=== PATIENT | female | born 1985 | race Caucasian/White ===

== ENCOUNTER 2017-04-02 16:58 | Emergency (ER) | payer MEDICAID ==
[~2017-04-02] VITALS: Ht 162.6 cm; Wt 108.0 kg
[2017-04-02 17:06] VITALS: BP 113/55; PULSE 81; RESP 18; O2SAT 100
[2017-04-02] MEDS ORDERED: PROZ40CA PO (17:14)
[2017-04-02] MEDS ORDERED: MONT10TA2 PO (17:14)
[2017-04-02] MEDS ORDERED: VENTAER INH (17:14)
[2017-04-02 17:15] VITALS: BP 113/55; PULSE 75; RESP 18; O2SAT 99
[2017-04-02] MEDS ORDERED: ONDANSETRON ODT 4 MG TAB PO ONE (17:15)
[2017-04-02] MEDS ORDERED: ACETAMINOPHEN/HYDROcodone 325 MG/5 MG TAB PO ONE (17:15)
--- NOTE | 2017-04-02 17:57 | RADRPT ---
EXAM DATE/TIME: 04/02/2017 17:10 [place] COMPARISON: No previous studies available for comparison. INDICATIONS : Patient states she fell down stairs, pain on lateral side of left ankle. MEDICAL HISTORY : None. SURGICAL HISTORY : None. ENCOUNTER: Initial ACUITY: 1 day PAIN SCORE: 8/10 LOCATION: Left lateral ankle FINDINGS: Three view exam was performed of the left ankle. Mild displaced fracture distal fibula. Soft tissue swelling. Ankle mortise intact. CONCLUSION: 1. Mildly displaced distal fibular fracture. Flex Dillard MD on April 02, 2017 at 17:55 Board Certified Radiologist. This report was verified electronically.
[2017-04-02] MEDS ORDERED: NORC5TAB PO (18:17)
--- NOTE | 2017-04-02 18:17 | PD ---
HPI Chief Complaint: Fall Time Seen by Provider: 17:07 Travel History International Travel<30 days: No Contact w/Intl Traveler<30days: No Traveled to known affect area: No [facility] Past Medical History Asthma: Yes Depression: Yes Respiratory: Yes Tetanus Vaccination: < 5 Years ?: Not LMP: 03/05/2017 Tubal Ligation: Yes Past Surgical History Cholecystectomy: Yes Genitourinary Surgery: Yes (kidney stone removal) Tonsillectomy: Yes Social History Alcohol Use: No Tobacco Use: No Substance Use: No Allergies-Medications (Allergen,Severity, Reaction): Coded Allergies: No Known Allergies (Unverified , 04/02/17) Reported Meds & Prescriptions Reported Meds & Active Scripts Active [place] (Hydrocodone-Acetaminophen) 5-325 mg Tab 1 Tab PO Q6H PRN Reported Singulair (Montelukast Sodium) 10 Mg Tab 10 Mg PO HS Ventolin Hfa 18 GM Inh (Albuterol Sulfate) 90 Mcg/Act Aer 2 Puff INH Q4-6H PRN Prozac (Fluoxetine HCl) 40 Mg Cap 40 Mg PO DAILY Data Data Last Documented VS Vital Signs Date Time Temp Pulse Resp B/P Pulse Ox O2 Delivery O2 Flow Rate FiO2 04/02/17 18:50 80 18 126/74 97 04/02/17 17:15 Room Air Orders Ankle, Complete ([id number]) (04/02/17 ) Acetamin-Hydrocod 325-5 Mg ([place] 5-325 (04/02/17 17:15) Ondansetron Odt (Zofran Odt) (04/02/17 17:15) Splinting (04/02/17 ) Crutches (04/02/17 ) Fiberglass Short Leg Splint Ad (04/02/17 ) Fiberglass Sugartong Sp Ad Sl (04/02/17 ) MDM Medical Decision Making Medical Screen Exam Complete: Yes Emergency Medical Condition: Yes Diagnosis Primary Impression: Fibula fracture Referrals: Jad King MD Med/Other Pt SpecificInfo: Prescription(s) given Scripts Hydrocodone-Acetaminophen ([place])5-325 mg Tab1 Tab PO Q6H PRN (PAIN) #15 TAB Ref 0 Prov:Jt Ramires MD 04/02/17 Disposition: 01 DISCHARGE HOME Condition: Stable Jt Ramires MD Apr 02, 2017 18:17
--- NOTE | 2017-04-02 18:23 | PD ---
HPI Chief Complaint: Fall Time Seen by Provider: 17:07 Travel History International Travel<30 days: No Contact w/Intl Traveler<30days: No Traveled to known affect area: No History of Present Illness HPI 32 year old female presenting with left ankle pain after falling down stairs 1 hour prior to arrival in the ED. She states that she heard a "pop" when she fell and was not able to bear weight on the ankle immediately after falling. She denies hitting her head or losing consciousness. She is experiencing some relief with ice but has not taken any pain medication. She denies any neck pain. Eyes any other injuries to other extremities chest abdomen or pelvis per PFSH Past Medical History Asthma: Yes Depression: Yes Respiratory: Yes Tetanus Vaccination: < 5 Years ?: Not LMP: 03/05/2017 Tubal Ligation: Yes Past Surgical History Cholecystectomy: Yes Genitourinary Surgery: Yes (kidney stone removal) Tonsillectomy: Yes Social History Alcohol Use: No Tobacco Use: No Substance Use: No Allergies-Medications (Allergen,Severity, Reaction): Coded Allergies: No Known Allergies (Unverified , 04/02/17) Reported Meds & Prescriptions Reported Meds & Active Scripts Active [place] (Hydrocodone-Acetaminophen) 5-325 mg Tab 1 Tab PO Q6H PRN Reported Singulair (Montelukast Sodium) 10 Mg Tab 10 Mg PO HS Ventolin Hfa 18 GM Inh (Albuterol Sulfate) 90 Mcg/Act Aer 2 Puff INH Q4-6H PRN Prozac (Fluoxetine HCl) 40 Mg Cap 40 Mg PO DAILY Review of Systems Except as stated in HPI: all other systems reviewed are Neg Musculoskeletal: Positive: Pain (left ankle pain) Physical Exam Narrative GENERAL: Well-nourished, well-developed patient. SKIN: Focused skin assessment warm/dry. HEAD: Normocephalic. EYES: No scleral icterus. No injection or drainage. NECK: Supple, trachea midline. No JVD or lymphadenopathy. CARDIOVASCULAR: Regular rate and rhythm without murmurs, gallops, or rubs. RESPIRATORY: Breath sounds equal bilaterally. No accessory muscle use. GASTROINTESTINAL: Abdomen soft, non-tender, nondistended. MUSCULOSKELETAL: Mild swelling to the left ankle, there is some minimal tenderness to both medial and lateral malleoli, there is no tenderness to the proximal tib or fib. No tenderness of the foot. Right lower extremity is atraumatic. The remainder of the extremities are atraumatic, no midline CT or L -spine tenderness. BACK: Nontender without obvious deformity. No CVA tenderness. Data Data Last Documented VS Vital Signs Date Time Temp Pulse Resp B/P Pulse Ox O2 Delivery O2 Flow Rate FiO2 04/02/17 18:50 80 18 126/74 97 04/02/17 17:15 Room Air Orders Ankle, Complete ([id number]) (04/02/17 ) Acetamin-Hydrocod 325-5 Mg ([place] 5-325 (04/02/17 17:15) Ondansetron Odt (Zofran Odt) (04/02/17 17:15) Splinting (04/02/17 ) Crutches (04/02/17 ) Fiberglass Short Leg Splint Ad (04/02/17 ) Fiberglass Sugartong Sp Ad Sl (04/02/17 ) MDM Medical Decision Making Medical Screen Exam Complete: Yes Emergency Medical Condition: Yes Differential Diagnosis Tibia fracture, fibular fracture, ankle dislocation unlikely, ankle strain, ankle sprain. Narrative Course Patient roomed emergency department, certainly not excludable light auto ankle rules x-ray was ordered, does show a distal fibula fracture which is minimally displaced. Pulse motor and sensory were rechecked and intact. Patient will be placed in a splint and on crutches to follow-up with an orthopedic surgeon back in her home town. She was given the name of the orthopedic surgeon electronic assembly should she remain in the area. She stable for discharge. No indication for CT head by [facility] CT head rolls, no indication for CT neck by [facility] criteria. Diagnosis Primary Impression: Fibula fracture Scripts Hydrocodone-Acetaminophen ([place])5-325 mg Tab1 Tab PO Q6H PRN (PAIN) #15 TAB Ref 0 Prov:Jt Ramires MD 04/02/17 Disposition: 01 DISCHARGE HOME Condition: Stable Jt Ramires MD Apr 02, 2017 18:23
[2017-04-02 18:50] VITALS: BP 126/74
== END 2017-04-02 18:51 | disposition home or self-care (01) ==
LOC: NEPC 16:58
DX: S82.832A Other fracture of upper and lower end of left fibula, initial encounter for closed fracture (principal); W10.9XXA Fall (on) (from) unspecified stairs and steps, initial encounter
CPT/HCPCS: 29515; 73610; 99283; E0113